=== PATIENT | female | born 1960 | race Caucasian/White ===

== ENCOUNTER → 2017-01-11 | Outpatient (CLI) | payer OTHER | LOC: CIMAGING 07:27 | PROVIDERS: ATTEND Internal Medicine | DX: Z12.31 Encounter for screening mammogram for malignant neoplasm of breast (principal) | CPT/HCPCS: G0202 ==

== ENCOUNTER → 2017-05-03 | Outpatient (CLI) | payer OTHER | LOC: CIMAGING 08:51 | PROVIDERS: ATTEND General Practice | DX: N95.0 Postmenopausal bleeding (principal) | CPT/HCPCS: 76830-PO ==

== ENCOUNTER → 2018-01-26 | Outpatient (CLI) | payer BC, OTHER | LOC: CIMAGING 07:42 | PROVIDERS: ATTEND Internal Medicine | DX: Z12.31 Encounter for screening mammogram for malignant neoplasm of breast (principal) ==

== ENCOUNTER → 2018-07-20 | Outpatient (CLI) | payer BC | LOC: CIMAGING 08:18 | PROVIDERS: ATTEND Otolaryngology | DX: K11.8 Other diseases of salivary glands (principal); R22.0 Localized swelling, mass and lump, head; M47.892 Other spondylosis, cervical region; M48.02 Spinal stenosis, cervical region | CPT/HCPCS: 70486-PO ==